=== PATIENT | male | born 1960 | race Caucasian/White ===

== ENCOUNTER 2019-02-06 05:25 | Day surgery (SDC) | payer MEDICAID ==
[~2019-02-06] VITALS: Ht 170.2 cm; Wt 104.3 kg
[2019-02-06] MEDS ORDERED: EPINEPHrine 1 MG/ML AMP IV ONE (07:40)
[2019-02-06] MEDS ORDERED: BACITRACIN ZINC 15 GM TOPICAL OINTMENT TP ONE (07:40)
[2019-02-06] MEDS ORDERED: MIDAZOLAM HCL 5 MG/5 ML VIAL IVP ONE (07:40)
[2019-02-06] MEDS ORDERED: GLYCOPYRROLATE 0.2 MG/ML VIAL IJ ONE (07:40)
[2019-02-06] MEDS ORDERED: PROPOFOL 200MG/ 20ML VIAL (DIPRIVAN) IV ONE (07:40)
[2019-02-06] MEDS ORDERED: NEOSTIGMINE METHYLSULFATE 1 MG/ML, 10 ML VIAL IVP ONE (07:40)
[2019-02-06] MEDS ORDERED: DEXAMETHASONE SOD PHOSPHATE 4 MG/ML VIAL IVP ONE (07:40)
[2019-02-06] MEDS ORDERED: WATER FOR IRRIGATION,STERILE 1,000 ML IRRIG.SOLN IR ONE (07:40)
[2019-02-06] MEDS ORDERED: ONDANSETRON HCL 4 MG/2 ML VIAL IVP ONE (07:40)
[2019-02-06] MEDS ORDERED: NS IRRIG SOLN 1000 ML IR ONE (07:40)
[2019-02-06] MEDS ORDERED: LR 1,000 ML IV.SOLN IV ONE (07:40)
[2019-02-06] MEDS ORDERED: SEVOFLURANE 15 MIN GAS INH ONE (07:40)
[2019-02-06] MEDS ORDERED: NS 250 ML IV.SOLN IV ONE (07:40)
[2019-02-06] MEDS ORDERED: OXYMETAZOLINE HCL 0.05% NASAL SPRAY NS ONE (07:40)
[2019-02-06] MEDS ORDERED: fentaNYL CITRATE/PF 100 MCG/2 ML AMP IVP ONE (07:40)
[2019-02-06] MEDS ORDERED: LIDOCAINE/EPI 1% 1:100000 20 ML VIAL INJ ONE (07:40)
[2019-02-06] MEDS ORDERED: MUPIROCIN 2% TOPICAL OINTMENT 22 GM TP ONE (07:40)
[2019-02-06] MEDS ORDERED: ROCURONIUM BROMIDE 10 MG/ML (ZEMURON) IV ONE (07:40)
[2019-02-06] MEDS ORDERED: fentaNYL CITRATE/PF 100 MCG/2 ML AMP IVP PRN ×2 (08:15)
[2019-02-06] MEDS ORDERED: ONDANSETRON HCL 4 MG/2 ML VIAL IVP PRN (08:15)
[2019-02-06] MEDS ORDERED: fentaNYL CITRATE/PF 100 MCG/2 ML AMP ONE (10:59)
[2019-02-06 11:24] VITALS: BP_SYST 133
[2019-02-06] MEDS ORDERED: ACETAMINOPHEN 325 MG TABLET PO ONE (12:15)
[2019-02-06] MEDS ORDERED: ACETAMINOPHEN 325 MG TABLET ONE (12:27)
== END 2019-02-06 13:50 | disposition home or self-care (01) ==
LOC: SDS 05:25 → SMU 05:25 → SDS 13:50
PROVIDERS: ATTEND Otolaryngology
DX: J34.2 Deviated nasal septum (principal); J32.9 Chronic sinusitis, unspecified; J34.89 Other specified disorders of nose and nasal sinuses; Z68.36 Body mass index [BMI] 36.0-36.9, adult; I10 Essential (primary) hypertension; G47.30 Sleep apnea, unspecified; J34.3 Hypertrophy of nasal turbinates
CPT/HCPCS: 30140; 30520; 31255; 31295; 31298; 88305; 88311; C1726; J0171; J1100; J2250; J2405; J2704; J2710; J3010; J3490; J7050; J7120